=== PATIENT | female | born 1980 | race American Indian/Alaskan Native ===

== ENCOUNTER 2021-07-22 10:23 | Inpatient (IN) | payer MEDICAID ==
[2021-07-22] MEDS ORDERED: LOPERAMIDE 2 MG CAP PO PRN (14:34)
[2021-07-22] MEDS ORDERED: TERBUTALINE 1 MG/1 ML INJ SUB-Q PRN (14:34)
[2021-07-22] MEDS ORDERED: OXYTOCIN 10 UNIT/1 ML INJ IM PRN (14:34)
[2021-07-22] MEDS ORDERED: ONDANSETRON 4 MG/2 ML INJ IV PRN ×2 (14:34→23:13)
[2021-07-22] MEDS ORDERED: ePHEDrine SULFATE 50 MG/1 ML INJ IV PRN (14:34)
[2021-07-22] MEDS ORDERED: LIDOCAINE (2%) 20 MG/1 ML VIAL 20 ML MDV INFILTRATI ONE (14:34)
[2021-07-22] MEDS ORDERED: fentaNYL 100 MCG/2 ML INJ IV PRN (14:34)
[2021-07-22] MEDS ORDERED: PROMETHAZINE 25 MG TAB PO PRN (14:34)
[2021-07-22] MEDS ORDERED: MINERAL OIL 30 ML ORAL LIQD PO PRN (14:34)
[2021-07-22] MEDS ORDERED: ACETAMINOPHEN 325 MG TAB PO PRN (14:34)
[2021-07-22] MEDS ORDERED: PENICILLIN G POTASSIUM 5 MIL.UNITS in SODIUM CHLORIDE 0.9% 50 ML IV ONE (14:34)
[2021-07-22] MEDS ORDERED: CARBOPROST TROMETHAMINE 250 MCG/1 ML INJ IM PRN (14:34)
[2021-07-22] MEDS ORDERED: METHYLERGONOVINE MALEATE 0.2 MG/ML VIAL IM PRN (14:34)
[2021-07-22] MEDS ORDERED: miSOPROStol 200 MCG TAB PR PRN (14:34)
[2021-07-22] MEDS ORDERED: NalbUPHINE 10 MG/1 ML INJ IV PRN ×2 (14:34→23:13)
[2021-07-22] MEDS ORDERED: OXYTOCIN DRIP 30 UNITS/500 ML BAG IV SCH ×2 (15:00)
--- NOTE | 2021-07-22 15:34 | History and Physical Report ---
History of Present Illness Date of examination: 07/22/21 Date of admission: 07/22/21 14:34 History of present illness: [id number] at 39.3wks by EDC per prenatals received from both [facility]. Pt to be treated as walk-in. Pt admits to movement, painful contractions, denies LOF or vag bleed or headache. Pt also reports she received rhogam at 30wks for her Rh negative status adn same confirmed from records received later [facility] on 05/25/21. She also states she had a demise at 24wks, unknown cause. Past History Past Medical History: no pertinent history Past Surgical History: other (Abdominoplasty in 2020 then preg 6months later; Cholecystectomy) Social history: no significant social history - Obstetrical History Expected Date of Delivery: 07/26/21 Actual Gestation: 39 Week(s) 3 Day(s) : 8 Hx # Term Pregnancies: 3 Number of Pregnancies: 1 Spontaneous Abortions: 3 Number of Living Children: 3 Medications and Allergies Allergies Allergy/AdvReac Type Severity Reaction Status Date / Time No Known Allergies Allergy Unverified 07/22/21 10:47 Active Meds: Active Medications Acetaminophen (Acetaminophen 325 Mg Tab) 650 mg PO Q4H PRN PRN Reason: Pain, Mild (1-3) Carboprost Tromethamine (Carboprost Tromethamine 250 Mcg/1 Ml Inj) 250 mcg IM ONCE PRN PRN Reason: Uterine Bleeding Ephedrine Sulfate (Ephedrine Sulfate 50 Mg/1 Ml Inj) 10 mg IV Q2M PRN PRN Reason: Hypotension Fentanyl (Fentanyl 100 Mcg/2 Ml Inj) 100 mcg IV Q2H PRN PRN Reason: Pain,Severe (7-10) LABOR PAIN Oxytocin/Sodium Chloride (Pitocin/Ns 30 Unit/500ml) 30 units in 500 mls @ 2 mls/hr IV TITR KRISTA; Protocol Lactated Ringer's (Lactated Ringers) 1,000 mls @ 125 mls/hr IV DIRECT KRISTA Oxytocin/Sodium Chloride (Pitocin/Ns 30 Unit/500ml) 30 units in 500 mls @ 40 mls/hr IV TITR KRISTA; Protocol Loperamide HCl (Loperamide 2 Mg Cap) 2 mg PO ONCE PRN PRN Reason: give with Hemabate Methylergonovine Maleate (Methylergonovine Maleate 0.2 Mg/Ml Vial) 0.2 mg IM ONCE PRN PRN Reason: Uterine Bleeding Mineral Oil (Mineral Oil 30 Ml Oral Liqd) 30 ml PO QHS PRN PRN Reason: Constipation Misoprostol (Misoprostol 200 Mcg Tab) 800 mcg [place] ONCE PRN PRN Reason: Uterine Bleeding Nalbuphine HCl (Nalbuphine 10 Mg/1 Ml Inj) 10 mg IV Q2H PRN PRN Reason: Pain, Moderate (4-6) Ondansetron HCl (Ondansetron 4 Mg/2 Ml Inj) 4 mg IV Q8H PRN PRN Reason: Nausea And Vomiting Oxytocin (Oxytocin 10 Unit/1 Ml Inj) 10 unit IM ONCE PRN PRN Reason: Uterine Bleeding Promethazine HCl (Promethazine 25 Mg Tab) 25 mg PO Q6H PRN PRN Reason: Nausea And Vomiting Terbutaline Sulfate (Terbutaline 1 Mg/1 Ml Inj) 0.25 mg SUB-Q ONCE PRN PRN Reason: Hyperstimulation/Hypertonicity Review of Systems All systems: negative (ctx) - Vital Signs Vital signs: Vital Signs Temp Pulse Resp BP Pulse Ox 98.7 F 74 20 126/86 98 07/22/21 10:52 07/22/21 10:52 07/22/21 10:52 07/22/21 10:52 07/22/21 10:52 Temp Pulse Resp BP Pulse Ox 98.7 F 70 20 134/89 99 07/22/21 10:52 07/22/21 15:29 07/22/21 10:52 07/22/21 13:14 07/22/21 15:29 - Physical Exam Breasts: Positive: deferred Cardiovascular: Regular rate Lungs: Positive: Normal air movement Genitourinary (Female): Positive: normal external genitalia Vulva: both: normal Vagina: Positive: normal moisture Uterus: Positive: enlarged (non-tender, gravid) Extremities: Positive: normal - Obstetrical FHR: category 1 Uterine Contraction Monitor Mode: Palpation Cervical Dilatation: 5 Cervical Effacement Percentage: 100 station: -2 Uterine Contraction Pattern: Irregular Results Result Diagrams: 07/22/21 16:00 All other labs normal. Assessment and Plan Term with multiple limited care at 3 different clinics this preg, GBS neg per pt report, official pending. Pt initially [facility], where pt was allowed to walk to induce labor, later when records obtained, pt has not seen [facility] since Mar 2021 and therefore care transfered from Dr. Coleman to walk in, and I hereby have accepted patient. Rh neg and pt states she received rhogam at 30wks from [facility] in [place]. Pt i 1. Will admit to labor and delivery, will check walk in labs and [facility] labs 2. Obtain official records for GBS 3. Augment with AROM, then pitocin if needed 4. May have epidural when desired 5. Plan of care discussed and pt agrees. All questions encouraged and answered
--- NOTE | 2021-07-22 16:10 | Event Note ---
Date: 07/22/21 Received call from triage nurse about this patient. Informed her that this patient has not been seen in our office since March, therefore, is not longer a patient of [facility] optometric technician. Patient will be treated by physician covering walk-ins.
[2021-07-22 16:27] LABS: Hematocrit 37.6 % (30.3-42.9); Hemoglobin 12.3 gm/dl (10.1-14.3); Mean Corpuscular HGB Conc 33 % (30-34); Mean Corpuscular Volume 93 fl (79-97); Platelet Count 217 K/mm3 (140-440); Red Blood Count 4.04 M/mm3 (3.65-5.03); Red Cell Distribution Width 15.2 % (13.2-15.2)
[2021-07-22 19:09] LABS: Alanine Aminotransferase 10 units/L (7-56); Albumin 2.9 g/dL (3.9-5); Blood Urea Nitrogen 7 mg/dL (7-17); Calcium 10.1 mg/dL (8.4-10.2); Hemolysis Index 7
[2021-07-22 19:10] LABS: BUN/Creatinine Ratio 10
[2021-07-22 19:44] LABS: Uric Acid 5.1 mg/dL (3.5-7.6)
[2021-07-22] MEDS ORDERED: NALOXONE 2 MG/2 ML INJ IV PRN (23:13)
[2021-07-22] MEDS ORDERED: LACTATED RINGERS 250 ML IV SOLN IV ONE (23:13)
[2021-07-22] MEDS ORDERED: diphenhydrAMINE 50 MG/ML VIAL IV PRN (23:13)
[2021-07-22] MEDS ORDERED: fentaNYL-BUPIV 2 MCG/ML-0.125% 200 MCG/100 ML BAG EPIDURAL SCH (23:45)
--- NOTE | 2021-07-22 23:53 | Anesthesia Consultation ---
Anesthesia Consult and Med Hx Date of service: 07/22/21 - Airway Anesthetic Teeth Evaluation: Good ROM Head & Neck: Adequate Mental/Hyoid Distance: Adequate Mallampati Class: Class III Intubation Access Assessment: Possibly Difficult - Pulmonary Exam CTA: Yes - Cardiac Exam Cardiac Exam: RRR - Pre-Operative Health Status ASA Pre-Surgery Classification: ASA2 Proposed Anesthetic Plan: Epidural - Pulmonary Hx Smoking: No Hx Asthma: Yes (last asthma attack 04/2019 when Covid +) COPD: No Hx Pneumonia: No Hx Sleep Apnea: No - Cardiovascular System Hx Hypertension: No Hx Heart Attack/AMI: No Hx Angina: No - Central Nervous System Hx Seizures: No Hx Psychiatric Problems: No - Gastrointestinal Hx Gastroesophageal Reflux Disease: No - Endocrine Hx Renal Disease: No Hx End Stage Renal Disease: No Hx Liver Disease: No Hx Insulin Dependent Diabetes: No Hx Non-Insulin Dependent Diabetes: No Hx Hypothyroidism: No Hx Hyperthyroidism: No - Hematic Hx Anemia: No Hx Sickle Cell Disease: No - Other Systems Hx Alcohol Use: No Hx Obesity: Yes - Additional Comments Anesthesia Medical History Comments: h/o abdominoplasty, liposuction
--- NOTE | 2021-07-22 23:54 | Progress Note ---
Labor Epidural - Labor Epidural Start Time: 23:36 Stop Time: 23:47 Performed by:: DHAVAL DAVISON Procedure: Patient is requesting epidural for labor and pain. H&P, labs were reviewed. Patient IDed, all questions and concerns were answered, and consent was signed. Timeout was performed at bedside. Patient in sitting position. Sterile prep and drape was performed. 3ml of 1% lidocaine skin wheal at L[3]- L [4]. 17- gauge Tuohy epidural needle was advanced to loss of resistance with air technique 8.5cm. Negative CSF negative blood. Epidural catheter advanced to [14] centimeters. [negative] Aspiration [negative] test dose. Sterile dressing applied. Patient tolerated procedure.
--- NOTE | 2021-07-23 00:20 | Ultrasound Report ---
ULTRASOUND OBSTETRIC COMPLETE INDICATION / CLINICAL INFORMATION: Abdominal pain, contractions. Clinical Gestational Age (GA) in weeks, days: 39 weeks 3 days TECHNIQUE: Transabdominal. COMPARISON: None available. FINDINGS: NUMBER: Single PRESENTATION: cephalic PLACENTA: Not imaged MATERNAL ADNEXA: No significant abnormality. AMNIOTIC FLUID VOLUME: normal AMNIOTIC FLUID INDEX (МАРИЯ) in cm (if measured): 9.4 MEASUREMENTS: - Biparietal Diameter = 9.4 cm = 38 weeks 3 days - Head Circumference = 36.1 cm = not calculated - Abdominal Circumference = 32.3 cm = 36 weeks 1 - Femur Length = 7.2 cm = 36 weeks 6 days - Estimated Weight (in grams, if calculated): 3166 - Heart Rate (beats per minute): 121 ADDITIONAL FINDINGS: None. PERCENTILE ESTIMATED WEIGHT (if calculated): 22 AVERAGE ULTRASOUND AGE (AUA) in weeks, days = 37 weeks 1 day IMPRESSION: 1. Single intrauterine with AUA of 37 weeks 1 day. 2. No significant sonographic abnormality. 3. МАРИЯ measures 9.4 cm. 4. Estimated weight measures 3166 g. Signer Name: Power Blakely MD Signed: 07/23/2021 12:15 AM Workstation Name: [id number]
[2021-07-23] MEDS ORDERED: LIDOCAINE (2%) 20 MG/1 ML VIAL 20 ML MDV INFILTRATI ONE (00:34)
[2021-07-23] MEDS: ePHEDrine SULFATE 50 MG/1 ML INJ IV PRN ×2 (02:50→03:02)
[2021-07-23] MEDS: LACTATED RINGERS 1,000 ML IV SCH ×2 (04:35→06:14)
[2021-07-23] MEDS ORDERED: oxyCODONE /ACETAMINOPHEN 5-325MG TAB ONE (08:51)
[2021-07-23] MEDS ORDERED: ACETAMINOPHEN 325 MG TAB PO PRN (12:05)
[2021-07-23] MEDS ORDERED: PROMETHAZINE 25 MG RECT SUPP PR PRN (12:05)
[2021-07-23] MEDS ORDERED: MAGNESIUM HYDROXIDE (MOM) ORAL LIQD UDC PO PRN (12:05)
[2021-07-23] MEDS ORDERED: PRENATAL VIT27-FE FUMARATE-FOLIC ACID VIT TAB PO SCH (12:05)
[2021-07-23] MEDS ORDERED: diphenhydrAMINE 25 MG CAP PO PRN (12:05)
[2021-07-23] MEDS ORDERED: ONDANSETRON 4 MG/2 ML INJ IV PRN (12:05)
[2021-07-23] MEDS ORDERED: PROMETHAZINE 25 MG TAB PO PRN (12:05)
[2021-07-23] MEDS ORDERED: WITCH HAZEL/ GLYCERIN PAD TP PRN (12:05)
[2021-07-23] MEDS ORDERED: LANOLIN/ZINC/DIMETHICONE (LANSINOH) 7 GM TP PRN (12:05)
[2021-07-23] MEDS ORDERED: oxyCODONE /ACETAMINOPHEN 5-325MG TAB PO PRN (12:05)
--- NOTE | 2021-07-23 14:13 | Post Anesthesia Evaluation ---
- Post Anesthesia Evaluation Patient Participated: Yes Airway Patent: Yes Stable Respiratory Function: Yes Nausea/Vomiting: No Temp > 96.8F: Yes Pain Manageable: Yes Adequeate Hydration: Yes Anesthesia Complications: No Block Receding Appropriately: Yes Patient on Ventilator: No
[2021-07-23 21:02] LABS: Hematocrit 31.1 % (30.3-42.9); Hemoglobin 10.3 gm/dl (10.1-14.3)
[2021-07-23] MEDS: IBUPROFEN 600 MG TAB PO SCH (21:18)
[2021-07-24 04:21] LABS: Amphetamine Screen,Urine PRESUMPTIVE NEGATIVE; Benzodiazepines Screen,Urine PRESUMPTIVE NEGATIVE; Cannabinoid Screen,Urine PRESUMPTIVE NEGATIVE; Cocaine Screen,Urine PRESUMPTIVE NEGATIVE; Methadone Screen,Urine PRESUMPTIVE NEGATIVE; Opiate Screen,Urine PRESUMPTIVE NEGATIVE
[2021-07-24] MEDS: IBUPROFEN 600 MG TAB PO SCH ×3 (05:38→19:44)
[2021-07-24] MEDS ORDERED: DOCUSATE SODIUM 100 MG CAP PO SCH (10:00)
[2021-07-24] MEDS ORDERED: MAGNESIUM HYDROXIDE (MOM) ORAL LIQD UDC PO PRN (11:37)
[2021-07-24] MEDS ORDERED: LANOLIN/ZINC/DIMETHICONE (LANSINOH) 7 GM TP PRN (11:37)
--- NOTE | 2021-07-24 11:44 | Progress Note ---
Assessment and Plan A: day 1 S/P . Anemia. P: Supplement with oral iron. Continue routine care. Anticipate discharge home tomorrow morning if patient continues to do well. Subjective - Subjective Date of service: 07/24/21 Principal diagnosis: day 1 S/P Patient reports: appetite normal, voiding normally, pain well controlled, flatus, ambulating normally, no dizzy ambulation, no nauseated : doing well Objective - Vital Signs Latest vital signs: Vital Signs Temp Pulse Resp BP Pulse Ox Pulse Ox 07/24/21 07:45 98.0 F 77 22 114/70 99 07/24/21 05:38 18 07/24/21 00:00 98.4 F 77 20 110/73 99 07/23/21 22:01 98 07/23/21 21:18 18 07/23/21 20:08 98.7 F 87 18 110/64 99 07/23/21 16:10 98.2 F 85 18 123/75 98 Intake and Output 07/23/21 07/24/21 07/24/21 23:59 07:59 15:59 Intake Total 1080 Output Total 850 600 Balance 230 -600 Intake: Oral 600 Intake, Free Water 480 Output: Urine 850 600 Indwelling Catheter 350 Void 500 600 Other: Total, Intake Amount 600 Total, Output Amount 500 100 # Voids Void 1 1 # Bowel Movements 1 - Exam Cardiovascular: Present: Regular rate Lungs: Present: Clear to auscultation Abdomen: Present: normal appearance, soft. Absent: distention, tenderness, guarding, rigidity Uterus: Present: normal, firm, fundal height below umbilicus. Absent: bogginess, tenderness Extremities: Absent: tenderness, edema
--- NOTE | 2021-07-24 12:23 | Event Note ---
Date: 07/24/21 Patient changed her mind and has decided to stay in hospital until tomorrow morning.
[2021-07-24] MEDS: FERROUS SULFATE 325 MG TAB PO SCH (19:43)
[2021-07-24] MEDS: DOCUSATE SODIUM 100 MG CAP PO SCH (22:38)
[2021-07-25 00:44] LABS: Hematocrit 31.8 % (30.3-42.9); Hemoglobin 10.6 gm/dl (10.1-14.3)
[2021-07-25] MEDS: IBUPROFEN 600 MG TAB PO SCH ×2 (01:58→09:32)
[2021-07-25] MEDS ORDERED: TETANUS,DIPH,PERTUSS(ACELL) VACCINE 0.5 ML SYRINGE IM ONE (06:00)
--- NOTE | 2021-07-25 06:35 | Discharge Summary ---
Providers - Providers Date of Admission: 07/22/21 14:34 Date of discharge: 07/25/21 Attending physician: JOS EDWARDS Primary care physician: JOS EDWARDS Hospitalization Delivery: Discharge diagnosis: IUP at term delivered Condition at discharge: Stable Disposition: 01 HOME / SELF CARE / HOMELESS Plan - Provider Discharge Summary Activity: no sex for 6 weeks Additional instructions: [] Smoking cessation referral if applicable(refer to patient education folder for contact #) [] Refer to [facility] Book[facility] Call your doctor immediately for: * Fever > 100.5 * Heavy vaginal bleeding ( >1 pad per hour) * Severe persistent headache * Shortness of breath * Reddened, hot, painful area to leg or breast * Drainage or odor from incision. * Keep incision clean and dry at all times and follow doctor's instructions regarding bathing/showering - Follow up plan Follow up: JOS EDWARDS MD [Primary Care Provider] - 6 Weeks
--- NOTE | 2021-07-25 06:36 | Progress Note ---
Subjective - Subjective Date of service: 07/25/21 Interval history: stable for DC to home Alex Nloan MD Patient reports: appetite normal, voiding normally, pain well controlled, ambulating normally [place]: doing well Objective - Vital Signs Latest vital signs: Vital Signs Temp Pulse Resp BP BP Pulse Ox Pulse Ox 07/25/21 01:21 97.9 F 71 18 112/63 99 07/24/21 21:20 100 07/24/21 18:17 98.2 F 83 22 107/58 07/24/21 07:45 98.0 F 77 22 114/70 99 Intake and Output 07/24/21 07/24/21 07/25/21 15:59 23:59 07:59 Intake Total 480 Balance 480 Intake: Intake, Free Water 480 Other: # Voids Void 1 1 - Exam Breasts: Present: deferred Cardiovascular: Present: Regular rate Lungs: Present: Clear to auscultation Abdomen: Present: normal appearance, soft Uterus: Present: fundal height below umbilicus Extremities: Present: normal Deep Tendon Reflex Grade: Normal +2
[2021-07-25] MEDS: DOCUSATE SODIUM 100 MG CAP PO SCH (09:32)
[2021-07-25] MEDS: FERROUS SULFATE 325 MG TAB PO SCH (09:32)
[2021-07-25 12:29] VITALS: BP 139/76
--- NOTE | 2021-07-27 10:06 | Procedure Note ---
OB Delivery Note - Delivery Date of Delivery: 07/23/21 Surgeon: JOS EDWARDS Estimated blood loss: 300cc - Vaginal Delivery presentation: vertex Delivery position: OA Intrapartum events: none Delivery induction: none Delivery monitor: none Route of delivery: Delivery placenta: spontaneous Delivery cord: nuchal cord (x1), 3 umbilical vessels Episiotomy: none Delivery laceration: none Anesthesia: none Delivery comments: uncomplicated, placenta delivered complete; mother and baby stable - Infant A at 1 minute: 8 at 5 minutes: 9 Gender: Male (wt 3140g)
== END 2021-07-25 11:45 | disposition home or self-care (01) | DRG 775 ==
LOC: TRG 10:23 → APU 10:27 → TRG 15:05 → LD 18:13 → OB 07-23 10:23
PROVIDERS: ADMIT Obstetrics & Gynecology; ATTEND Obstetrics & Gynecology
PROC: 10E0XZZ Delivery of Products of Conception, External Approach (ICD-10-PCS; principal; 2021-07-23)
PROC: 3E0R3BZ Introduction of Anesthetic Agent into Spinal Canal, Percutaneous Approach (ICD-10-PCS; 2021-07-23)
PROC: 00HU33Z Insertion of Infusion Device into Spinal Canal, Percutaneous Approach (ICD-10-PCS; 2021-07-23)
PROC: 3E0234Z Introduction of Serum, Toxoid and Vaccine into Muscle, Percutaneous Approach (ICD-10-PCS; 2021-07-25)
PROC: 3E0234Z Introduction of Serum, Toxoid and Vaccine into Muscle, Percutaneous Approach (ICD-10-PCS; 2021-07-25)
DX: O69.81X0 Labor and delivery complicated by cord around neck, without compression, not applicable or unspecified (principal); Z37.0 Single live birth; Z3A.40 40 weeks gestation of pregnancy; Z23 Encounter for immunization; Z20.822 Contact with and (suspected) exposure to COVID-19; O26.893 Other specified pregnancy related conditions, third trimester; Z67.41 Type O blood, Rh negative; O99.52 Diseases of the respiratory system complicating childbirth; J45.909 Unspecified asthma, uncomplicated; O90.81 Anemia of the puerperium
CPT/HCPCS: 36415; 59025; 76816; 80053; 80307; 83615; 84550; 85014; 85018; 85027; 85461; 86592; 86850; 86900; 86901; 90715; 96360; 96361; 96365; 96366; 96374; 96376; 99211; G0378; J3490; G0463; J2590; J2790; J7120; U0003